=== PATIENT | female | born 1965 | race Caucasian/White ===

== ENCOUNTER 2018-05-02 07:40 | Outpatient (RCR) | payer OTHER | END 2018-05-06 | LOC: M PT 07:40 | DX: Z51.89 Encounter for other specified aftercare (principal); M72.2 Plantar fascial fibromatosis | CPT/HCPCS: 97110 ==

== ENCOUNTER 2018-05-10 13:56 | Outpatient (RCR) | payer OTHER | END 2018-06-05 | LOC: M PT 13:56 | DX: Z51.89 Encounter for other specified aftercare (principal); M72.2 Plantar fascial fibromatosis | CPT/HCPCS: 97010 ==

== ENCOUNTER → 2020-11-14 | Outpatient (CLI) | payer SELFPAY | LOC: M LABSMTC 10:11 | PROVIDERS: ATTEND Pediatrics | DX: Z11.52 Encounter for screening for COVID-19 (principal) ==

== ENCOUNTER → 2021-11-24 | Outpatient (CLI) | payer OTHER | LOC: M WHC 10:18 | PROVIDERS: ATTEND Family Medicine | DX: Z12.31 Encounter for screening mammogram for malignant neoplasm of breast (principal) ==

== ENCOUNTER → 2024-06-30 | Outpatient (CLI) | payer OTHER | LOC: M WHC 07:25 | PROVIDERS: ATTEND Student in an Organized Health Care Education/Training Program | DX: Z12.31 Encounter for screening mammogram for malignant neoplasm of breast (principal) ==